=== PATIENT | male | born 1940 | race Caucasian/White ===

== ENCOUNTER 2023-07-04 00:50 | Inpatient (IN) | payer MEDICARE, BC, SELFPAY ==
[2023-07-04] VITALS (24 sets, daily range): BP systolic 124–188; BP diastolic 54–93; PULSE 63–84; RESP 16–28; TEMP 35.9–36.5; O2SAT 93–98; BMI 35.6
--- NOTE | ~2023-07-04 | XR_ITS ---
EXAMINATION: XR chest 2V DATE: 07/04/2023 01:24 INDICATION: Chest pain TECHNIQUE: PA and lateral views of the chest were obtained. COMPARISON: None FINDINGS: The lungs are clear with no focal airspace opacities, pulmonary edema, pleural effusion or pneumothor ax. The cardiomediastinal silhouette is normal. Multiple wire fragments potentially related to a prio r median sternotomy in the central anterior chest wall. There are few small mediastinal surgical clip s consistent with coronary artery bypass grafting. IMPRESSION: 1. No acute cardiopulmonary disease. Reviewed, dictated and finalized at location A.
--- NOTE | 2023-07-04 00:51 | ECG_ITS ---
Measurements Intervals [place] Rate: 84 P: 59 [place]: 143 QRS: 251 QRSD: 143 T: 46 QT: 383 QTc: 455 Interpretive Statements SINUS RHYTHM RIGHT AXIS DEVIATION RIGHT BUNDLE BRANCH BLOCK INFERIOR INFARCT, AGE INDETERMINATE CONSIDER ANTEROLATERAL INFARCT, AGE INDETERMINATE BASELINE ARTIFACT- I, II, III, AVR, AVL, AVF, V2 ABNORMAL ECG NO PREVIOUS ECG AVAILABLE FOR COMPARISON Electronically Signed On 07-04-2023 8:03:55 CDT by Girma Fisher D.O.
[2023-07-04 01:21] LABS: Basophils Percent Auto 0.3 % (0.2-1.2); Eosinophils Absolute Auto 0.1 K/mm3 (0-0.3); Eosinophils Percent Auto 1.2 % (0-4.4); Hematocrit 48.7 % (42.0-52.0); Hemoglobin 15.8 g/dL (14.0-18.0); Immature Granulocyte Absolute 0.03 K/mm3 (0.00-0.031); Immature Granulocyte Percent A 0.4 % (0-0.5); Lymphocytes Absolute Auto 3.14 K/mm3 (0.9-3.2); Lymphocytes Percent Auto 43.3 % (18.3-44.2); Mean Corpuscular HGB Conc 32.4 g/dl (32-36); Mean Corpuscular Hemoglobin 31.7 pg (26-34); Mean Corpuscular Volume 97.6 fl (80-100); Mean Platelet Volume 10.6 fl (7.4-10.4); Monocytes Absolute Auto 0.6 K/mm3 (0.1-0.6); Neutrophils Absolute Auto 3.4 K/mm3 (1.3-6.7); Neutrophils Percent Auto 46.8 % (45.5-73.1); Platelet Count Result 172 k/mm3 (150-375); Red Blood Count 4.99 M/mm3 (4.6-6.20); Red Cell Distribution Width 13.1 % (11.5-14.5); White Blood Count 7.3 K/mm3 (4.5-10.0)
[2023-07-04 01:31] LABS: Alanine Aminotransferase 20 U/L (6-50); Alkaline Phosphatase 27 U/L (38-126); Anion Gap 6 mmol/L (8-16); Aspartate Amino Transferase 29 U/L (17-59); Bilirubin,Total 0.5 mg/dL (0.2-1.3); Blood Urea Nitrogen 25 mg/dL (9-20); Calcium 8.9 mg/dL (8.4-10.2); Carbon Dioxide 28 mmol/L (22-30); Chloride 105 mmol/L (98-107); Estimated CRCL calculation 40 ml/min; Estimated Glomerular Filt Rate 45; Glucose 142 mg/dL (65-110); Lipase 243 U/L (23-300); Partial Thromboplastin Time 26.9 Seconds (22.3-36.8); Potassium 4.1 mmol/L (3.4-5.0); Prothrombin Time 13.4 Seconds (11.1-14.7); Sodium 139 mmol/L (137-145)
[2023-07-04 01:45] LABS: Troponin I 0.524 ng/mL (0.000-0.034)
--- NOTE | 2023-07-04 02:03 | ED.GENADULT ---
HPI - General Adult General Chief complaint: Chest Pain Stated complaint: chest pain Time Seen by Provider: 07/04/23 01:39 History of Present Illness HPI narrative: patient 83-year-old gentleman who presents emergency department with chief complaint of chest pain. Patient reports he has been having intermittent chest discomfort since Wednesday reports that usually last about an hour reports tonight he had an episode started around midnight and reports that the pain has been constant since then the patient reports that it feels like indigestion reports no shortness of breath reports that feels similar to whenever he had his bypass in the past patient reports that he is currently taking no medications as he ran out of his metoprolol and his statin several weeks ago the patient states that he does not take a daily aspirin. 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 Related Data Home Medications Medication Instructions Recorded Confirmed aspirin 81 mg tablet,delayed 81 mg PO DAILY 03/20/19 05/19/22 release (Aspir-) nitroglycerin 0.4 mg sublingual 0.4 mg sublingual Q5M PRN 03/20/19 12/16/20 tablet Allergies Allergy/AdvReac Type Severity Reaction Status Date / Time cephalexin Allergy Unknown Rash Verified 05/19/22 07:41 Tetanus Vaccines and Toxoid Allergy Unknown Rash Verified 05/19/22 07:41 Horse Serum Proteins Allergy Severe Hives / Uncoded 05/19/22 07:41 Red Face Review of Systems Review of Systems: A 10 system review of systems was completed on the patient and is negative except for what is stated in the HPI. Nursing and ancillary documentation was reviewed. [facility] Past Medical History Medical History Atherosclerotic heart disease of [place] coronary artery with angina pectoris BMI 37.0-37.9, adult BMI 38.0-38.9,adult BPH (benign prostatic hyperplasia) Mixed hyperlipidemia Primary osteoarthritis of both knees Stage 3 chronic kidney disease Surgical History Surgical History History of open heart surgery Family History Family History Mother Cerebrovascular accident Father Family history of coronary artery disease Sibling Sibling No problems noted. 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 HEAD: Normocephalic, atraumatic. EYES: PERRLA and EOMI. ENT: Nares clear, no rhinorrhea or epistaxis. Mucous membranes moist. NECK: Supple. CHEST: Clear to auscultation. No respiratory distress. HEART: Regular rate and rhythm. No murmur heard. Normal peripheral pulses. ABDOMEN: Soft, nontender, nondistended, normal active bowel sounds. EXTREMITIES: Normal range of motion. No edema. SKIN: Warm, dry, no rash. NEURO: No focal deficits. Alert and oriented x3. PSYCH: Normal mood and affect. Course Vital Signs Vital signs: Vital Signs Temperature 36.5 C 07/04/23 01:01 Pulse Rate 81 07/04/23 01:01 Respiratory Rate 16
[2023-07-04] MEDS: NITROGLYCERIN SL 0.4 MG TABLET SUBLINGUAL (02:05)
[2023-07-04] MEDS: ASPIRIN 81 MG CHEWABLE TABLET 324 MG PO (02:05)
--- NOTE | 2023-07-04 02:06 | PC.NURSE ---
0205 1st nitro tab given. VS 184/85 bp, 81 HR. Pain 3/10. 0210 2nd nitro tab given. VS 176/78bp, 86 HR. Pain 0/10.
[2023-07-04] MEDS: HEPARIN SOD/D5W 100 UNITS/ML 25,000 UNITS/250 ML BAG 10 UNITS IV CONT (02:26)
[2023-07-04] MEDS: HEPARIN SODIUM 5,000 UNITS/ML VIAL 4000 UNITS IV PUSH ×3 (02:27→19:25)
--- NOTE | 2023-07-04 02:59 | PC.NURSE ---
at this time, pt refusing morphine medication due to decrease in pain after nitroglycerin administration.
--- NOTE | 2023-07-04 03:42 | ADMGEN ---
This patient, Wayne Moyer, was admitted to IMU Room 202-01. Patient/family oriented to hospital policies and general routines including ID bracelet, bed and alarms, visiting hours, pain management, procedures, bathroom and other care routines, personal items, smoking policy, room service/diet, and visiting hours. Information on how to activate the Rapid Response Team has been discussed. Patient/Family are encouraged to report perceived risks to care and to ask questions if they do not understand what they are told or what they should do.
[2023-07-04] MEDS: NITROGLYCERIN OINTMENT 1 INCH DOSE TRANSDERM ×3 (06:44→17:25)
[2023-07-04 08:02] LABS: Basophils Percent Auto 0.3 % (0.2-1.2); Eosinophils Percent Auto 0.5 % (0-4.4); Hemoglobin 15.9 g/dL (14.0-18.0); Immature Granulocyte Absolute 0.04 K/mm3 (0.00-0.031); Immature Granulocyte Percent A 0.5 % (0-0.5); Lymphocytes Absolute Auto 2.48 K/mm3 (0.9-3.2); Lymphocytes Percent Auto 28.8 % (18.3-44.2); Mean Corpuscular HGB Conc 32.4 g/dl (32-36); Mean Corpuscular Hemoglobin 31.9 pg (26-34); Mean Corpuscular Volume 98.4 fl (80-100); Mean Platelet Volume 11.5 fl (7.4-10.4); Monocytes Absolute Auto 0.5 K/mm3 (0.1-0.6); Monocytes Percent Auto 5.8 % (2.6-8.5); Neutrophils Absolute Auto 5.5 K/mm3 (1.3-6.7); Neutrophils Percent Auto 64.1 % (45.5-73.1); Platelet Count Result 187 k/mm3 (150-375); Red Blood Count 4.98 M/mm3 (4.6-6.20); Red Cell Distribution Width 13.1 % (11.5-14.5); White Blood Count 8.6 K/mm3 (4.5-10.0)
--- NOTE | 2023-07-04 08:41 | ECG_ITS ---
Measurements Intervals [place] Rate: 72 P: 50 [place]: 150 QRS: 262 QRSD: 132 T: 38 QT: 400 QTc: 439 Interpretive Statements SINUS RHYTHM WITH SINUS ARRHYTHMIA RIGHT AXIS DEVIATION RIGHT BUNDLE BRANCH BLOCK INFERIOR INFARCT, AGE INDETERMINATE CONSDIER LATERAL INFARCT, AGE INDETERMINATE BASELINE ARTIFACT- I, II, III, AVR ABNORMAL ECG COMPARED TO ECG 07/04/2023 00:55:15 SINUS ARRHYTHMIA NOW PRESENT Electronically Signed On 07-04-2023 13:25:01 CDT by Girma Fisher D.O.
[2023-07-04] MEDS: ASPIRIN 81 MG CHEWABLE TABLET PO (08:44)
[2023-07-04 08:56] LABS: Partial Thromboplastin Time 33.6 Seconds (22.3-36.8)
--- NOTE | 2023-07-04 11:03 | PM.CNCAR ---
Assessment and Plan Assessment and plan (1) Non-ST elevation ME (NSTEMI): Code(s): I21.4 - Non-ST elevation (NSTEMI) myocardial infarction Status: Acute Plan This is an 83-year-old man known to have coronary disease with surgical revascularization as described above 21 years ago. He has not had any recent cardiac follow-up and has been seen by his primary care physician in recent years. He enters the hospital after sustaining an infarction yesterday he does not remember the symptoms are able to provide much history regarding this event. For the moment he is stable and he is on intravenous heparin. For the moment I will plan on and expected perform a follow-up angiogram on him tomorrow to assess his coronary anatomy and status of his grafts. It is unclear to me as this patient is appropriate for signing consents for procedures. Maximilian Hunt MD [facility] History of Present Illness History of Present Illness Consult date/time: 07/04/23 11:03 Reason For Visit: NSTEMI Narrative: This is a 83-year-old man I am seeing at the request of the hospitalist because of non ST elevation ME. the patient is comfortable at this time and offers no active complaints. He is a very poor historian and appears to have very little ability in relating history as to his current illness. The chart indicates that he came to the emergency room yesterday being brought by family members because of some chest pain that had been going on for couple of days. He was given treatment in the ER with aspirin and nitroglycerin and according to the record his symptoms improved. He was anticoagulated with hepari N and admitted to the IMU. He is comfortable now and states he was waiting for me to come in to see him so that he can go home. Serial troponin levels have risen significantly up to 14. His electrocardiogram shows sinus rhythm with a right bundle branch block without any acute ischemic changes or injury changes. He does not recall the reason why he came to the hospital yesterday he seems to give a very strange history that he had appointments to and so he came to the emergency room to keep his appointment. In any event he appears to be comfortable at this time and does not have any ongoing complaints. According to the records that I was able to see in the old chart he has a history of coronary disease having been treated with bypass grafting back in 2002. Previous office note states he had a MYRNA graft placed to a diagonal branch of his LAD and a radial artery graft to the right coronary artery. His last appointment in the office was 11 years ago with my partner, Dr. Bajwa at which time he was doing well. Apparently he failed follow-up after that office visit. He has been seeing Dr. Rausch for his primary care needs. His last appointment with them it looks like was in April of 2022 at which time his medical regimen and consisted of aspirin low-dose of metoprolol and simvastatin. There has not been any cardiac evaluation in a long time. Had a long discussion with the patient regarding the fact that he did suffer myocardial infarction yesterday and a treatment strategy needs to be formulated in terms of an aggressive versus conservative with the strategy. He is at the time agreeable to a follow-up angiogram during this hospitalization but I do not get the sense that he understands this very well. He states that he lives alone now with sons in the vicinity. He states that his within the last several months. Review of Systems Review of Systems: ROS unobtainable: Yes unobtainable due to mental status PMFSH Past Medical History Medical History Atherosclerotic heart disease of [place] coronary artery with angina pectoris BMI 37.0-37.9, adult BMI 38.0-38.9,adult BPH (benign prostatic hyperplasia) Mixed hyperlipidemia Primary osteoarthritis of both knees Stage 3 chronic kidne
[2023-07-04] MEDS: METOPROLOL SUCCINATE EXT REL 25 MG TABCR PO (11:50)
[2023-07-04] MEDS: ROSUVASTATIN 20 MG TABLET PO (11:50)
--- NOTE | 2023-07-04 12:48 | PM.IMHP ---
H&P: HPI History of Present Illness Date/Time: 07/04/23 9:48 Chief Complaint: He is an obese gentleman who came to the ER early this morning with chest pain. He is complaining of chest pain off and on since last couple of days and for 1 hour prior to arrival, his pain became constant and worsened with intensity 8 to 10/10, which she describes like his heart is cramping , associated with palpitations and sweating but no chest pain. 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 He has not seen a he ran out and has not taken his medication the last month. On review of the pharmacy records, he has not picked his meds since since December 2022. Workup was done in the ER which showed elevated cardiac and EKG changes consistent with non ST elevated MS. Cardiology consulted and patient was started on IV heparin drip. His chest pain is controlled on the floor but his troponins continue to rise. He is being admitted for medical management, Cardiology evaluation, cardiac catheterization and further workup. Review of Systems Review of Systems: 14 systems were reviewed with pertinent positives and negatives per HPI. Except as documented in the HPI/progress notes, all other systems were reviewed and are negative. All systems reviewed & are unremarkable except as noted in HPI and below PMFSH Past Medical History Medical History Atherosclerotic heart disease of [place] coronary artery with angina pectoris BMI 37.0-37.9, adult BMI 38.0-38.9,adult BPH (benign prostatic hyperplasia) Mixed hyperlipidemia Primary osteoarthritis of both knees Stage 3 chronic kidney disease Surgical History Surgical History History of open heart surgery Family History Family History Mother Cerebrovascular accident Father Family history of coronary artery disease Sibling Sibling No problems noted. Son Coronary artery disease Atrial fibrillation Son Coronary artery disease Social History Social History Smoking packs per day: 1 Smoking cigarettes per day: 20.0 Years smoked: 40 Smoking pack-years: 40.00 Smoking status: Former smoker Tobacco type: cigarettes Second hand tobacco smoke exposure: Yes Smoking end date: 04/19/93 Alcohol intake: current Drinks per week: 1 Substance use: never Substance use type: does not use Do You Feel Safe in your Home?: Yes Lack of Transportation: No Lack of Food: Never True Current Housing: I Have Housing Concerned About Future Housing: No Difficulty Paying Gas/Electric Bills: No Difficulty Paying for Meds: No Currently Unemployed: No Education: Associate Degree Difficulty w/ Childcare or Family Care: No Living arrangements: alone Occupation/Education: retired 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 Gender identity (if verbalized by the patient): Male Spiritual care concerns: No Meds Home Medications and Allergies Home Medications Medication Instructions Recorded Confirmed Type No Home Medications 07/04/23 07/04/23 History Allergies Allergy/AdvReac Type Severity Reaction Status Date / Time Horse/Equine Containing Allergy Severe Hives/RED Verified 07/04/23 11:06 Products FACE cephalexin Allergy Unknown Rash Verified 07/04/23 02:36 Tetanus Vaccines and Toxoid Allergy Unknown Rash Verified 07/04/23 02:36 Horse Serum Proteins Allergy Severe Hives / Uncoded 05/19/22 07:41 Red Face Vital Signs Vital Signs - 24 hr 07/04/23 01:01 07/04/23 01:49 07/04/23 01:49 Temperature 36.5 C Pulse Rate 81 80 Respiratory Rate 16 Blood Pressure 186/83 H Pulse Oximetry 96 97 Oxygen Delivery Room Air Room Air 07/04/23 01:51 06/17
[2023-07-04] MEDS: MELATONIN 3 MG TABLET PO (22:19)
[2023-07-05] VITALS (28 sets, daily range): BP systolic 102–150; BP diastolic 55–106; PULSE 56–99; RESP 15–24; TEMP 36.1–36.7; O2SAT 94–98
[2023-07-05] MEDS: NITROGLYCERIN OINTMENT 1 INCH DOSE TRANSDERM ×2 (00:13→05:42)
--- NOTE | 2023-07-05 01:26 | PC.NURSE ---
Patient anxious/uncooperative at the beginning of the shift. Oriented to self and sometimes that he is in the hospital. Wanting to go home, attempting to call son frequently and put his pants on to go home. With a lot of talking, reorienting, empathizing, patient follows instructions. spoke with son, Woodrow and Cami Patino ANP, Melatonin administered to patient per new orders after patient became more cooperative and was in bed ready to sleep. Patient still up frequently to void, looking for his who 3 years or so ago. Patient cooperative once he is reminded of what everything is and what he is expected to do. Laying in bed quietly at this time. Denies complaints.
[2023-07-05 02:57] LABS: Basophils Percent Auto 0.1 % (0.2-1.2); Eosinophils Absolute Auto 0.1 K/mm3 (0-0.3); Eosinophils Percent Auto 0.6 % (0-4.4); Hematocrit 46.5 % (42.0-52.0); Immature Granulocyte Absolute 0.04 K/mm3 (0.00-0.031); Immature Granulocyte Percent A 0.5 % (0-0.5); Lymphocytes Absolute Auto 2.05 K/mm3 (0.9-3.2); Lymphocytes Percent Auto 23.7 % (18.3-44.2); Mean Corpuscular HGB Conc 32.3 g/dl (32-36); Mean Corpuscular Hemoglobin 31.9 pg (26-34); Mean Corpuscular Volume 98.9 fl (80-100); Monocytes Absolute Auto 0.8 K/mm3 (0.1-0.6); Monocytes Percent Auto 8.8 % (2.6-8.5); Neutrophils Absolute Auto 5.8 K/mm3 (1.3-6.7); Neutrophils Percent Auto 66.3 % (45.5-73.1); Platelet Count Result 163 k/mm3 (150-375); White Blood Count 8.7 K/mm3 (4.5-10.0)
[2023-07-05 03:15] LABS: Anion Gap 3 mmol/L (8-16); Blood Urea Nitrogen 22 mg/dL (9-20); Carbon Dioxide 30 mmol/L (22-30); Chloride 104 mmol/L (98-107); Estimated CRCL calculation 48 ml/min; Estimated Glomerular Filt Rate 53; Glucose 127 mg/dL (65-110); Phosphorus 4.3 mg/dL (2.5-4.5); Sodium 137 mmol/L (137-145)
--- NOTE | 2023-07-05 03:37 | ECG_ITS ---
Measurements Intervals [place] Rate: 68 P: 66 [place]: 164 QRS: -85 QRSD: 134 T: 46 QT: 434 QTc: 462 Interpretive Statements SINUS RHYTHM LEFT AXIS DEVIATION POSSIBLE LEFT ATRIAL ENLARGEMENT RIGHT BUNDLE BRANCH BLOCK INFERIOR INFARCT, AGE INDETERMINATE BASELINE ARTIFACT- I, II, III, AVR, AVL, AVF, V1, V6 ABNORMAL ECG COMPARED TO ECG 07/04/2023 08:53:09 NO SIGNIFICANT CHANGES Electronically Signed On 07-05-2023 7:04:15 CDT by Girma Fisher D.O.
[2023-07-05 03:45] LABS: Partial Thromboplastin Time > 200.0 Seconds (22.3-36.8)
--- NOTE | 2023-07-05 04:01 | PC.NURSE ---
Troponin this am 49.8. Patient denies pain, pressure, SOB. EKG obtained. Dr. Hunt here and saw patient. No new orders.
[2023-07-05] MEDS: ROSUVASTATIN 20 MG TABLET PO (08:54)
[2023-07-05] MEDS: METOPROLOL SUCCINATE EXT REL 25 MG TABCR PO (08:54)
[2023-07-05] MEDS: ASPIRIN 81 MG CHEWABLE TABLET PO (08:54)
--- NOTE | 2023-07-05 10:50 | WPDMODSED ---
Moderate Sedation Note-Pt Data Patient Data Diagnosis: non ST-elevation [place] coronary artery disease remote history of bypass grafting Present Complaint: chest pain that occurred approximately 48 hours prior to admission, currently asymptomatic Procedure to be performed/Plan: follow-up left heart catheterization Allergies Allergy/AdvReac Type Severity Reaction Status Date / Time Horse/Equine Containing Allergy Severe Hives/RED Verified 07/04/23 11:06 Products FACE cephalexin Allergy Unknown Rash Verified 07/04/23 02:36 Tetanus Vaccines and Toxoid Allergy Unknown Rash Verified 07/04/23 02:36 Horse Serum Proteins Allergy Severe Hives / Uncoded 05/19/22 07:41 Red Face Home Medications Medication Instructions Recorded Confirmed Type No Home Medications 07/04/23 07/04/23 History Current Medications: Active Medications Acetaminophen (Acetaminophen 325 Mg Tablet) 650 mg PO Q4H PRN PRN Reason: Mild Pain (1-3) or Fever Al Hydrox/Mg Hydrox/Simethicone (Mag Hydrox/Al Hydrox/Simeth 30 Ml Udc) 30 ml PO QID PRN PRN Reason: Dyspepsia Aspirin (Aspirin 81 Mg Chewable Tablet) 81 mg PO DAILY@0800 [facility] Last Admin: 07/05/23 08:54 Dose: 81 mg Heparin Sodium (Porcine) (Heparin Sodium 5,000 Units/Ml Vial) 3,500 units IV PUSH PRN PRN PRN Reason: aPTT 55 - 70 seconds Heparin Sodium (Porcine) (Heparin Sodium 5,000 Units/Ml Vial) 4,000 units IV PUSH PRN PRN PRN Reason: aPTT less than 55 seconds Last Admin: 07/04/23 19:25 Dose: 4,000 units Heparin Sodium/Dextrose (Heparin Sodium/D5w 100 Units/Ml) 25,000 units in 250 mls @ 18 mls/hr IV CONT .[id number] [facility]; Protocol Last Titration: 07/05/23 05:10 Dose: Infused Metoprolol Succinate (Metoprolol Succinate Ext Rel 25 Mg Tabcr) 25 mg PO QAM [facility] Last Admin: 07/05/23 08:54 Dose: 25 mg Morphine Sulfate (Morphine Sulfate (*Crx) 2 Mg/Ml Inj) 2 mg IV PUSH Q2H PRN PRN Reason: Pain Rated 7-10 Nitroglycerin (Nitroglycerin Ointment 1 Inch Dose) 1 inch TRANSDERM Q6HR [facility] Last Admin: 07/05/23 05:42 Dose: 1 inch Ondansetron HCl (Ondansetron Inj 4 Mg/2 Ml Vial) 4 mg IV PUSH Q4H PRN PRN Reason: Nausea Rosuvastatin Calcium (Rosuvastatin 20 Mg Tablet) [facility] [place] Admin: 07/05/23 08:54 Dose: 20 mg Sedation/Anesthesia: No previous sedation/anesthesia problems (including family history). [facility] Past Medical History Medical History Atherosclerotic heart disease of [place] coronary artery with angina pectoris BMI 37.0-37.9, adult BMI 38.0-38.9,adult BPH (benign prostatic hyperplasia) Mixed hyperlipidemia Primary osteoarthritis of both knees Stage 3 chronic kidney disease Surgical History Surgical History History of open heart surgery Family History Family History Mother Cerebrovascular accident Father Family history of coronary artery disease Sibling Sibling No problems noted. Son Coronary artery disease Atrial fibrillation Son Coronary artery disease Social History Social History Smoking packs per day: 1 Smoking cigarettes per day: 20.0 Years smoked: 40 Smoking pack-years: 40.00 Smoking status: Former smoker Tobacco type: cigarettes Second hand tobacco smoke exposure: Yes Smoking end date: 04/19/93 Alcohol intake: current Drinks per week: 1 Substance use: never Substance use type: does not use Do You Feel Safe in your Home?: Yes Lack of Transportation: No Lack of Food: Never True Current Housing: I Have Housing Concerned About Future Housing: No Difficulty Paying Gas/Electric Bills: No Difficulty Paying for Meds: No Currently Unemployed: No Education: Associate Degree Difficulty w/ Childcare or Family Care: No Living arrangements: alone Occupation/Ed
[2023-07-05 10:56] LABS: Partial Thromboplastin Time 90.9 Seconds (22.3-36.8)
--- NOTE | 2023-07-05 11:54 | WPDCARDPROC ---
Cardiac Cath Procedure Note Date of procedure:: 07/05/23 Performing physician:: Maximilian uHnt MD Indication:: coronary artery disease with previous CABG non ST-elevation ID Brief clinical history:: this is an 83-year-old man with coronary disease who underwent bypass grafting 21 years ago. At that time received a MYRNA graft to a diagonal and a radial artery graft to the RPDA. He was lost to follow-up for many years. He presented to the hospital over the weekend with chest pain, troponin elevation consistent with non ST elevation ID but no ischemic ECG abnormalities. In this setting follow-up angiography has been arranged for this morning Procedure Procedure performed:: coronary angiography radial artery graft angiography internal mammary graft angiography left ventriculography Sedation/Medication given:: no sedation case start time 11:18 a.m. case end time 11:45 a.m. sedation provided by Blanca Jones RN, trained observer Access site:: right femoral artery Estimated blood loss:: 25 cc Procedure note:: Patient was brought to the cardiac catheterization lab in the postabsorptive state where the right femoral triangle was prepped and draped in the normal sterile fashion. Anesthesia was provided with cc of lidocaine injected locally. Following this using the modified Seldinger technique the right femoral artery was punctured and a 5 Martiniquais vascular sheath was placed. I then used a 5 [place] FL4 catheter to engage and inject the left coronary artery. A 5 [place] JR4 catheter was used engage and inject the right coronary artery as well as the radial artery graft to the RCA. The left mammary graft was injected non selectively using a 5 [place]iquais MYRNA catheter. Following this a 5 [place]iqu[place] angled pigtail catheter was used to document left-sided hemodynamics and inject the left ventriculogram in the HERRERA projection. The cineangiograms were then reviewed and the case was terminated. He was taken to the holding area for manual sheath removal and recovery. 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 Findings:: Hemodynamics: Central aortic pressure is 146 over 60 left ventricle 146 over 16 end-diastolic pressure 24, no gradient across the aortic valve upon pullback. Left ventricle: The LV is mildly enlarged in the HERRERA projection contractility is reasonably well maintained with a global ejection fraction of visually estimated to be 45-50%. The left main coronary artery is medium in caliber and is patent proximally. There is plaque with at least 70-80% stenosis in the distal left main. The left anterior descending is 100% occluded at its origin the circumflex is a moderate caliber artery giving rise to marginal branches. There is 99% ostial stenosis of the circumflex extending from the distal left main. The trunk of the circumflex distal to this is of good caliber. The right coronary artery is 100% occluded just after the ostium radial artery graft to the RPDA shows it to be widely patent it is a good caliber segment of radial artery is anastomosis proximally and distally to the RPDA is nicely patent fills the PDA and the PL branches nicely. There is some collateral filling to a distal circumflex vessel as well as to septal branches of the LAD. Internal mammary graft to the diagonal is medium in caliber it is patent was somewhat difficult to engage selectively. It is anastomosis to the diagonal however is patent fills that vessel nicely. Conclusion:: 1. Right coronary dominant circulation with 100% occlusion of the proximal right coronary artery and 100% occlusion of the ostial segment of the LAD. Both of these are chronic 2. high-grade stenosis of the distal left main with 99% stenosis into the ostium of the circumflex. This is un bypassed disease and appears to be the culprit for the patient's presentation 3. mild LV enlargement with mi
[2023-07-05 12:02] LABS: Activated Clotting Time 125 SEC (74-137)
[2023-07-05] MEDS: SODIUM CHLORIDE 0.9% IV 1,000 ML 125 ML IV CONT (14:09)
--- NOTE | 2023-07-05 14:59 | PM.PNCARD ---
Progress Note: A&P Assessment and Plan (1) Non-ST elevation [place] (NSTEMI): Code(s): I21.4 - Non-ST elevation (NSTEMI) myocardial infarction Status: Acute Plan 83-year-old man with: Coronary artery disease surgical bypass grafts to the anterior circulation with the MYRNA graft as well as the radial artery graft to the RCA are nicely patent. He has high-grade distal left main and ostial circumflex disease that needs to be revascularized percutaneously. This is a heavily calcified vessel as well as a significantly angulated takeoff from the left main. For this reason I did not believe that PCI at this hospital was reasonable or appropriate to attempt. Discussed this case with colleagues at [facility] who are willing to accept him for transfer and revascularization at that institution. The list plans are in place. I spoke to the hospitalist who will accept him in transfer. Maximilian Hunt MD [facility] Subjective Date/time seen: Date of service: 07/05/23 14:59 Interval history: Follow-up visit in this 83-year-old man with: Coronary artery disease status post surgical revascularization 21 years ago. Presented to the hospital over the weekend with non ST elevation WI after a hiatus in office follow-up for approximately 11 years. Follow-up catheterization done today demonstrated chronic proximal occlusions of the LAD and right coronary arteries. The MYRNA graft to the diagonal and radial artery graft to the RCA look fine. He has high-grade distal left main stenosis extending into the ostium of the circumflex where it is subtotal. The circumflex had not been grafted. The patient has heavily calcified coronary arteries as well as heavily calcified so-called porcelain aorta. In addition to this there was a significant angulated takeoff from the circumflex from the left main. In this setting recommendation was made for higher risk PCI of the left main, ostial circumflex probably with rotational atherectomy and then stenting. Plans are in place for transfer to [facility] for this procedure Exam Const: General: comfortable and no acute distress Other: Overweight elderly man no distress HENMT: Face/Nose/Sinus: Normal nares present Mouth: Yes moist mucous membranes Eyes: Sclera: sclerae normal Neck: Neck: supple and no JVD Resp: Effort & Inspection: normal respiratory effort Auscultation: clear to auscultation bilaterally Cardio: Rate: regular rate Rhythm: regular rhythm GI: GI Palp: Yes Soft to palpation Auscultation: normal bowel sounds Skin: General skin exam: normal color Neuro: Other: Alert and responsive, patient is intermittently confused Extrem: General: normal to inspection Objective Data Vital Signs Vital Signs: Vital Signs - 24 hr 07/04/23 16:00 07/04/23 16:00 07/04/23 16:00 Temperature 36.2 C L Pulse Rate 67 69 Respiratory Rate 18 Blood Pressure 138/54 L Pulse Oximetry 98 Oxygen Delivery Room Air 07/04/23 18:00 07/04/23 20:05 07/04/23 20:00 Temperature 36.5 C Pulse Rate 77 74 74 Respiratory Rate 18 18 Blood Pressure 147/62 H Pulse Oximetry 95 95 Oxygen Delivery Room Air 07/04/23 20:00 07/04/23 22:00 07/04/23 23:44 Temperature 36.4 C Pulse Rate 76 71 70 Respiratory Rate 18 Blood Pressure 124/54 L Pulse Oximetry 97 Oxygen Delivery 07/05/23 00:00 07/05/23 00:00 07/05/23 02:00 Temperature Pulse Rate 68 68 60 Respiratory Rate 18 Blood Pressure Pulse Oximetry 97 Oxygen Delivery Room Air 07/05/23 03:58 07/05/23 04:00 07/05/23 04:00 Temperature 36.5 C Pulse Rate 73 64 64 Respiratory Rate 18 18 Blood Pressure 148/63 H Pulse Oximetry 96 96 Oxygen Delivery Room Air 07/05/23 06:00 07/05/23 08:00 07/05/23 08:54 Temperature 36.4 C L Pulse Rate 62 64 59 L Respiratory Rate 18 Blood Pressure 102/59 L Pulse Oximetry 97 Oxygen Delivery 07/05/23 12:12 07/05/23 12:15
--- NOTE | 2023-07-05 15:44 | PM.TDS ---
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 Patient condition upon transfer : Guarded/Serious. DS: Admitting Diagnosis Discharge Date 07/05/2023: Admitting Diagnosis Non ST elevated AL DS: Discharge Diagnosis Discharge Diagnosis (1) Non-ST elevation [place] (NSTEMI): Code(s): I21.4 - Non-ST elevation (NSTEMI) myocardial infarction Status: Acute (2) Personal history of noncompliance with medical treatment and regimen: Code(s): Z91.199 - Patient's noncompliance with other medical treatment and regimen due to unspecified reason Status: Acute (3) BMI 38.0-38.9,adult: Code(s): Z68.38 - Body mass index [BMI] 38.0-38.9, adult Status: Acute (4) BPH (benign prostatic hyperplasia): Qualifiers: Lower urinary tract symptom presence: symptoms absent Qualified Code(s): N40.0 - Benign prostatic hyperplasia without lower urinary tract symptoms Code(s): N40.0 - Benign prostatic hyperplasia without lower urinary tract symptoms Status: Acute (5) Atherosclerotic heart disease of [place] coronary artery with angina pectoris: Code(s): I25.119 - Atherosclerotic heart disease of [place] coronary artery with unspecified angina pectoris Status: Acute (6) Mixed hyperlipidemia: Code(s): E78.2 - Mixed hyperlipidemia Status: Acute (7) Primary osteoarthritis of both knees: Code(s): M17.0 - Bilateral primary osteoarthritis of knee Status: Acute (8) Stage 3 chronic kidney disease: Code(s): N18.3 - Chronic kidney disease, stage 3 (moderate) Status: Acute (9) Bereavement: Code(s): Z63.4 - Disappearance and of family member Status: Acute Transfer Discharge Sum: Med Medications Active and Home Medications: Home Medications No Home Medications 07/04/23 [History Confirmed 07/04/23] Active Medications Acetaminophen (Acetaminophen 325 Mg Tablet) 650 mg PO Q4H PRN PRN Reason: Mild Pain (1-3) or Fever Al Hydrox/Mg Hydrox/Simethicone (Mag Hydrox/Al Hydrox/Simeth 30 Ml Udc) 30 ml PO QID PRN PRN Reason: Dyspepsia Aspirin (Aspirin 81 Mg Chewable Tablet) 81 mg PO DAILY@0800 [facility] Last Admin: 07/05/23 08:54 Dose: 81 mg Sodium Chloride (Normal Saline Iv) 1,000 mls @ 125 mls/hr IV CONT .Q8H ONE Stop: 07/05/23 19:51 Last Admin: 07/05/23 14:09 Dose: 125 mls/hr Metoprolol Succinate (Metoprolol Succinate Ext Rel 25 Mg Tabcr) 25 mg PO [facility] Last Admin: 07/05/23 08:54 Dose: 25 mg Morphine Sulfate (Morphine Sulfate (*Crx) 2 Mg/Ml Inj) 2 mg IV PUSH Q2H PRN PRN Reason: Pain Rated 7-10 Ondansetron HCl (Ondansetron Inj 4 Mg/2 Ml Vial) 4 mg IV PUSH Q4H PRN PRN Reason: Nausea Rosuvastatin Calcium (Rosuvastatin 20 Mg Tablet) 20 mg PO [facility] Last Admin: 07/05/23 08:54 Dose: 20 mg Transfer Discharge Sum: Hosp Hospital Course Hospital course: H&P: HPI History of Present Illness Date/Time: 07/04/23? 9:48 Chief Complaint: Patient admitted with worsening chest pain He is an obese gentleman who came to the ER early this morning with chest pain.? He is complaining of chest pain off and on since last couple of days and for 1 hour prior to arrival, his pain became constant and worsened with? intensity 8 to 10/10,
[2023-07-05] MEDS: LORazepam INJ (*CRX) 2 MG/ML VIAL 0.5 MG IV PUSH (16:09)
[2023-07-05] MEDS: HALOPERIDOL LACTATE 5 MG/ML VIAL 2 MG IV PUSH (17:47)
--- NOTE | 2023-07-05 21:55 | PC.NURSE ---
2125: Attempted to call report to [facility]. No answer at this time. 2146: Report given to Marina Hull RN. Charge nurse notified.
--- NOTE | 2023-07-05 23:00 | PC.NURSE ---
2250: Care transferred to [facility]. Receiving RN, Marina Hull, notified of patient departure.
--- NOTE | 2023-07-05 23:07 | PC.NURSE ---
Primary contact/Woodrow AMARAL, notified of patient departure.
== END 2023-07-05 22:52 | disposition short-term general hospital (02) | DRG 282 ==
LOC: ANHED 02:40 → ANHIMU 03:20
PROVIDERS: Specialist; Admitting Provider Internal Medicine; Emergency Provider Emergency Medicine; PCP Family Medicine; Visit Provider Family Medicine
PROC: 4A023N7 Measurement of Cardiac Sampling and Pressure, Left Heart, Percutaneous Approach (ICD-10-PCS; CPT 93459; principal; 2023-07-05 11:15)
DX: I21.4 Non-ST elevation (NSTEMI) myocardial infarction (principal); I25.119 Atherosclerotic heart disease of native coronary artery with unspecified angina pectoris; Z95.1 Presence of aortocoronary bypass graft; E66.9 Obesity, unspecified; E78.2 Mixed hyperlipidemia; M17.0 Bilateral primary osteoarthritis of knee; N40.0 Benign prostatic hyperplasia without lower urinary tract symptoms; N18.30 Chronic kidney disease, stage 3 unspecified; Z68.38 Body mass index [BMI] 38.0-38.9, adult; Z91.199 Patient's noncompliance with other medical treatment and regimen due to unspecified reason; Z79.82 Long term (current) use of aspirin; Z87.891 Personal history of nicotine dependence
CPT/HCPCS: 36415; 71046; 80048; 80053; 83690; 83735; 84100; 84484; 85025; 85610; 85730; 93005; 93459; 99285; A9270; C1769; C1887; C1894; J1630; J1644; J2060; J2250; J3010; J7030; J7040; L1830